=== PATIENT | female | born 1960 | race African-American/Black ===

== ENCOUNTER 2018-10-17 09:24 | Day surgery (SDC) | payer BC ==
[2018-10-16 12:27] VITALS: BMI 33.5
--- NOTE | 2018-10-17 07:58 | HP ---
HISTORY OF PRESENT ILLNESS: This is a 58-year-old female, seen in my office with abdominal pain, nausea, vomiting, and dyspepsia. The patient has these symptoms off and on. She has failed to respond to PPI. She was sent for abdominal sonogram. Sonogram shows fatty liver and no other pathology seen. The patient continues to have_ abdominal pain, nausea, and vomiting. The patient came to the ED because of the above reason. ALLERGIES: 1. HYDROCODONE. 2. TRAMADOL. SOCIAL HISTORY: Nonsmoker. Drinks alcohol very seldom. MEDICAL ILLNESS: 1. Obesity. 2. Hypertension. 3. Hypothyroidism. 4. Sleep apnea. 5. Chronic acid reflux. 6. Anxiety. 7. History of [place] mucosa. PHYSICAL EXAMINATION: GENERAL: The patient is obese, appears comfortable. VITAL SIGNS: Pulse is 70, blood pressure 130/80. HEENT: Conjunctivae clear. CARDIOVASCULAR: First and second heart sounds normal. LUNGS: Clear to auscultation. ABDOMEN: Soft. No organomegaly. Abdomen is tender over the epigastric area and periumbilical area. There is no rebound or guarding. No masses. ADMITTING DIAGNOSIS: Abdominal pain, nausea, negative abdominal sonogram. PLAN: EGD. Job ID: [id number] [facility] [place]
[2018-10-17] MEDS ORDERED: PROPOFOL 20 ML ONE (12:20)
[2018-10-17] MEDS ORDERED: Midazolam HCl 2 mg/2 ml Vial ONE (12:20)
[2018-10-17] MEDS ORDERED: Lidocaine 1% PF 5 ML VIAL ONE (16:37)
[2018-10-17] MEDS ORDERED: PROPOFOL 200 MG/20 ML VIAL ONE (16:37)
--- NOTE | 2018-10-17 17:29 | OP ---
DATE OF PROCEDURE: 10/17/2018 OPERATIVE PROCEDURES: Esophagogastroduodenoscopy with biopsy. PREOPERATIVE DIAGNOSES: Abdominal pain, nausea, and vomiting. The symptoms are intermittent. She was sent for abdominal sonogram, which came back negative. The patient underwent esophagogastroduodenoscopy. POSTOPERATIVE DIAGNOSIS: Normal exam. DESCRIPTION OF PROCEDURE: The patient was placed on her left lateral position and was given sedation by Anesthesia Department. A [employer]ax videogastroscope under direct vision passed down the oropharynx, past the GE junction into the stomach and subsequently into the descending duodenum. The esophageal mucosa appeared normal. There was no esophagitis seen. The GE junction no pathology. Retroflexion failed to show any pathology in the fundus and cardia. The gastric body, gastric antrum, no pathology. There were linear erythematous streaks of the gastric body. Biopsy obtained of the gastric antrum and gastric body. The duodenal bulb, descending duodenum no pathology. The stomach decompressed and scope removed. DISCHARGE PLAN: This is a 58-year-old female, came for EGD because of abdominal pain, nausea, and vomiting. She had a negative ultrasonogram a week ago. She underwent the EGD, the EGD was negative. The patient continues to have nausea and vomiting off and on. DISCHARGE RECOMMENDATIONS: 1. Have Zofran 4 mg ODT q.6 hours p.r.n. 2. HIDA scan nearly next week and I will make further recommendations after the HIDA scan. Job ID: [id number]
== END 2018-10-17 14:00 | disposition home or self-care (01) ==
LOC: SDC 09:24
PROVIDERS: ATTEND Internal Medicine Gastroenterology
PROC: 0DB68ZX Excision of Stomach, Via Natural or Artificial Opening Endoscopic, Diagnostic (ICD-10-PCS; principal; 2018-10-17)
PROC: 0DB78ZX Excision of Stomach, Pylorus, Via Natural or Artificial Opening Endoscopic, Diagnostic (ICD-10-PCS; principal; 2018-10-17)
DX: K29.50 Unspecified chronic gastritis without bleeding (principal); I10 Essential (primary) hypertension; E66.9 Obesity, unspecified; E03.9 Hypothyroidism, unspecified; G47.30 Sleep apnea, unspecified; K21.9 Gastro-esophageal reflux disease without esophagitis; F41.9 Anxiety disorder, unspecified; Z87.19 Personal history of other diseases of the digestive system; Z68.33 Body mass index [BMI] 33.0-33.9, adult; Z88.5 Allergy status to narcotic agent; Z79.899 Other long term (current) drug therapy
CPT/HCPCS: 88305; 88312; 88342; J2001; J2250; J2704

== ENCOUNTER 2018-10-21 08:13 | Outpatient (CLI) | payer BC ==
--- NOTE | 2018-10-21 12:39 | NM ---
HEPATOBILIARY SCAN: 10/21/18 HISTORY: Vomiting, nausea. Small gallbladder polyp on ultrasound of 04/25/16. RADIOPHARMACEUTICAL: 5 millicuries technetium 99m - Mebrofenin injected intravenously. FINDINGS: There is good tracer extraction by the liver with normal excretion into the biliary tract and small b owel loops and normal filling of the gallbladder. The calculated gallbladder ejection fraction following an oral fatty meal measures 67%. IMPRESSION: Normal exam. POS: OFF
== END 2018-10-21 08:14 | disposition home or self-care (01) ==
LOC: NM 08:13
PROVIDERS: ATTEND Internal Medicine Gastroenterology
DX: R11.2 Nausea with vomiting, unspecified (principal)
CPT/HCPCS: 78227; A9537